=== PATIENT | male | born 1980 | race Caucasian/White ===

== ENCOUNTER → 2017-01-30 | Outpatient (CLI) | payer BC, SELFPAY ==
[2017-01-30 11:03] LABS: HEMOGLOBIN 17.8 gm/dl (14.0-17.5); RED BLOOD COUNT 5.65 M/UL (4.20-5.50); WHITE BLOOD COUNT 6.4 K/UL (4.5-11.0)
== END ==
LOC: LAB 10:20
PROVIDERS: Nurse Practitioner Family
DX: A09 Infectious gastroenteritis and colitis, unspecified (principal); R11.2 Nausea with vomiting, unspecified
CPT/HCPCS: 36415; 80048; 80076; 82150; 83690; 85025

== ENCOUNTER → 2017-02-02 | Outpatient (CLI) | payer BC, SELFPAY ==
[2017-02-02 10:04] LABS: HEMOGLOBIN 17.8 gm/dl (14.0-17.5); RED BLOOD COUNT 5.66 M/UL (4.20-5.50); WHITE BLOOD COUNT 5.1 K/UL (4.5-11.0)
== END ==
LOC: LAB 09:36
PROVIDERS: Nurse Practitioner Family
DX: N28.9 Disorder of kidney and ureter, unspecified (principal); E87.6 Hypokalemia
CPT/HCPCS: 36415; 80053; 85025

== ENCOUNTER → 2017-02-11 | Outpatient (CLI) | payer BC, SELFPAY ==
[2017-02-11 08:10] LABS: BUN/CREATININE RATIO 17 (0-10)
== END ==
LOC: LAB 07:12
PROVIDERS: Nurse Practitioner Family
DX: E87.6 Hypokalemia (principal)
CPT/HCPCS: 36415; 80048

== ENCOUNTER → 2017-02-24 | Outpatient (CLI) | payer BC, SELFPAY ==
[2017-02-24 09:26] LABS: BUN/CREATININE RATIO 12 (0-10)
== END ==
LOC: LAB 08:38
PROVIDERS: Nurse Practitioner Family
DX: E78.6 Lipoprotein deficiency (principal)
CPT/HCPCS: 36415; 80048

== ENCOUNTER → 2017-03-05 | Outpatient (CLI) | payer BC, SELFPAY ==
[2017-03-05 19:27] LABS: BUN/CREATININE RATIO 15 (0-10)
== END ==
LOC: LAB 17:52
PROVIDERS: Nurse Practitioner Family
DX: E87.6 Hypokalemia (principal)
CPT/HCPCS: 36415; 80048

== ENCOUNTER → 2017-04-29 | Outpatient (CLI) | payer BC, SELFPAY ==
[2017-04-29 18:15] LABS: HEMOGLOBIN 16.7 gm/dl (14.0-17.5); RED BLOOD COUNT 5.43 M/UL (4.20-5.50); WHITE BLOOD COUNT 6.6 K/UL (4.5-11.0)
[2017-04-29 18:41] LABS: BUN/CREATININE RATIO 13 (0-10)
== END ==
LOC: LAB 17:39
PROVIDERS: Family Medicine
DX: D68.51 Activated protein C resistance (principal); N28.9 Disorder of kidney and ureter, unspecified; E55.9 Vitamin D deficiency, unspecified; E87.6 Hypokalemia; Z87.442 Personal history of urinary calculi
CPT/HCPCS: 36415; 80048; 80061; 80076; 84443; 85025

== ENCOUNTER → 2020-11-12 | Outpatient (CLI) | payer OTHER ==
[~2020-11-12] MED LIST: Bromphed DM PO; DOCUSATE SODIU250 MG PO; EFFER-K 20 MEQ20 MEQ PO; ELIQUIS5 MG PO; FLOMAX 0.4 MG0.4 MG PO; FLONASE 0.05% N16 GM; FOLIC ACID 1 MG1 MG PO; HYGROTON TAB 2525 MG PO; LOVENOX SY40 MG/0.4 SQ; PERCOCET 5/325 T1 EA PO; PERCOCET 7.5-31 EACH PO; RELPAX20 MG PO; TORADOL 10 MG T10 MG PO; XYZAL5 MG PO; ZOFRAN4 MG PO
[2020-11-12 07:27] LABS: HEMOGLOBIN 17.5 gm/dl (14.0-17.5); RED BLOOD COUNT 5.84 M/UL (4.20-5.50); WHITE BLOOD COUNT 7.4 K/UL (4.5-11.0)
[2020-11-12 07:39] LABS: BUN/CREATININE RATIO 17 (0-10)
[2020-11-13 10:14] LABS: CREATININE, URINE 223.8 mg/dL (Not Estab.)
== END ==
LOC: LAB 06:45
PROVIDERS: Family Medicine
DX: Z00.00 Encounter for general adult medical examination without abnormal findings (principal); E11.9 Type 2 diabetes mellitus without complications; E55.9 Vitamin D deficiency, unspecified
CPT/HCPCS: 36415; 80048; 80061; 80076; 82043; 82570; 82607; 82652; 83036; 84443; 85025

== ENCOUNTER → 2021-01-04 | Outpatient (CLI) | payer OTHER | LOC: EMI 13:23 | DX: M25.561 Pain in right knee (principal); S83.231A Complex tear of medial meniscus, current injury, right knee, initial encounter | CPT/HCPCS: 73721 ==

== ENCOUNTER → 2021-05-16 | Outpatient (CLI) | payer OTHER | LOC: KOH-I 13:30 | DX: R91.1 Solitary pulmonary nodule (principal) | CPT/HCPCS: 71250 ==

== ENCOUNTER → 2021-05-17 | Outpatient (CLI) | payer OTHER | LOC: LAB 06:56 | PROVIDERS: Internal Medicine | DX: E87.6 Hypokalemia (principal) | CPT/HCPCS: 36415; 80069 ==

== ENCOUNTER → 2021-05-28 | Outpatient (CLI) | payer OTHER ==
[2021-05-28 08:19] LABS: HEMOGLOBIN 18.5 gm/dl (14.0-17.5); RED BLOOD COUNT 5.84 M/UL (4.20-5.50); WHITE BLOOD COUNT 5.5 K/UL (4.5-11.0)
[2021-05-28 09:47] LABS: BUN/CREATININE RATIO 13 (0-10)
[2021-05-29 07:13] LABS: VITAMIN D, 25-HYDROXY 38.2 ng/mL (30.0-100.0)
[2021-05-29 09:15] LABS: CREATININE, URINE 210.6 mg/dL (Not Estab.)
== END ==
LOC: LAB 07:14
PROVIDERS: Family Medicine
DX: Z00.00 Encounter for general adult medical examination without abnormal findings (principal); E11.9 Type 2 diabetes mellitus without complications; E55.9 Vitamin D deficiency, unspecified
CPT/HCPCS: 36415; 80048; 80061; 80076; 82043; 82570; 82607; 82652; 83036; 84443; 85025

== ENCOUNTER → 2021-10-28 | Outpatient (CLI) | payer OTHER ==
[2021-10-28 08:18] LABS: BUN/CREATININE RATIO 13 (0-10)
[2021-10-28 08:26] LABS: HEMOGLOBIN 17.4 gm/dl (14.0-17.5); RED BLOOD COUNT 5.74 M/UL (4.20-5.50)
== END ==
LOC: LAB 06:54
PROVIDERS: Internal Medicine
DX: N20.0 Calculus of kidney (principal); E87.6 Hypokalemia
CPT/HCPCS: 36415; 80069; 82570; 83970; 84156; 85027

== ENCOUNTER → 2021-11-14 | Outpatient (CLI) | payer BC ==
[2021-11-14 07:30] LABS: HEMOGLOBIN 18.2 gm/dl (14.0-17.5); RED BLOOD COUNT 5.71 M/UL (4.20-5.50); WHITE BLOOD COUNT 7.7 K/UL (4.5-11.0)
[2021-11-15 07:10] LABS: ESTIM. AVG GLU (EAG) 134 mg/dL (.); HEMOGLOBIN A1C 6.3 % (4.8-5.6)
[2021-11-15 08:13] LABS: A/G RATIO 1.6 (1.2-2.2); ALKALINE PHOSPHATASE, S 82 IU/L (44-121); ALT (SGPT) 25 IU/L (0-44); AST (SGOT) 18 IU/L (0-40); BILIRUBIN, TOTAL 0.7 mg/dL (0.0-1.2); BUN 20 mg/dL (6-24); BUN/CREATININE RATIO 15 (9-20); CALCIUM, SERUM 9.6 mg/dL (8.7-10.2); CARBON DIOXIDE, TOTAL 23 mmol/L (20-29); CHLORIDE, SERUM 102 mmol/L (96-106); CHOLESTEROL, TOTAL 139 mg/dL (100-199); CREATININE, SERUM 1.35 mg/dL (0.76-1.27); CREATININE, URINE 164.2 mg/dL (Not Estab.); EGFR IF AFRICN AM 75 (>59); EGFR IF NONAFRICN AM 65 (>59); GLOBULIN, TOTAL 2.7 g/dL (1.5-4.5); GLUCOSE, SERUM 126 mg/dL (65-99); HDL CHOLESTEROL 45 mg/dL (>39); LDL CHOLESTEROL CALC 78 mg/dL (0-99); LDL/HDL RATIO 1.7 ratio (0.0-3.6); POTASSIUM, SERUM 3.8 mmol/L (3.5-5.2); PROTEIN, TOTAL, SERUM 6.9 g/dL (6.0-8.5); SODIUM, SERUM 140 mmol/L (134-144); T. CHOL/HDL RATIO 3.1 ratio (0.0-5.0); TRIGLYCERIDES 82 mg/dL (0-149); TRIIODOTHYRONINE (T3) 123 ng/dL (71-180); VITAMIN D, 25-HYDROXY 42.9 ng/mL (30.0-100.0)
== END ==
LOC: LAB 07:05
PROVIDERS: Family Medicine
DX: Z00.00 Encounter for general adult medical examination without abnormal findings (principal); E11.9 Type 2 diabetes mellitus without complications; E55.9 Vitamin D deficiency, unspecified; D68.51 Activated protein C resistance; N28.9 Disorder of kidney and ureter, unspecified
CPT/HCPCS: 36415; 80053; 80061; 82043; 82570; 82607; 82652; 83036; 84439; 84443; 84480; 84481; 85025

== ENCOUNTER → 2021-12-04 | Outpatient (CLI) | payer BC ==
[2021-12-04 10:22] LABS: BORDETELLA PARAPERTUSSIS Not Detected (Not Detectd); BORDETELLA PERTUSSIS Not Detected (Not Detectd); CHLAMYDIA PNEUMONIAE Not Detected (Not Detectd); CORONAVIRUS HKU1 Not Detected (Not Detectd); CORONAVIRUS NL63 Not Detected (Not Detectd); CORONAVIRUS OC43 Not Detected (Not Detectd); CORONOAVIRUS 229E Not Detected (Not Detectd); HUMAN METAPNEUMOVIRUS Not Detected (Not Detectd); HUMAN RHINOVIRUS/ENTEROVIRUS Not Detected (Not Detectd); INFLUENZA A Not Detected (Not Detectd); INFLUENZA B Not Detected (Not Detectd); MYCOPLASMA PNEUMONIAE Not Detected (Not Detectd); PARAINFLUENZA VIRUS 1 Not Detected (Not Detectd); PARAINFLUENZA VIRUS 2 Not Detected (Not Detectd); PARAINFLUENZA VIRUS 3 Not Detected (Not Detectd); PARAINFLUENZA VIRUS 4 Not Detected (Not Detectd); RESPIRATORY SYNCYTIAL VIRUS Not Detected (Not Detectd)
[2021-12-04 11:45] LABS: SARS-CoV-2 NOT DETECTED (Not Detectd)
== END ==
LOC: RT 10:08
PROVIDERS: Nurse Practitioner Family
DX: J06.9 Acute upper respiratory infection, unspecified (principal); Z20.822 Contact with and (suspected) exposure to COVID-19
CPT/HCPCS: 87633

== ENCOUNTER → 2022-03-10 | Outpatient (CLI) | payer BC ==
[2022-03-10 07:19] LABS: HEMOGLOBIN 17.3 gm/dl (14.0-17.5); RED BLOOD COUNT 5.64 M/UL (4.20-5.50); WHITE BLOOD COUNT 5.9 K/UL (4.5-11.0)
== END ==
LOC: LAB 06:50
PROVIDERS: Internal Medicine
DX: E87.6 Hypokalemia (principal); N20.0 Calculus of kidney
CPT/HCPCS: 36415; 80069; 82570; 83970; 84156; 85027

== ENCOUNTER → 2022-06-04 | Outpatient (CLI) | payer BC ==
[2022-06-04 08:03] LABS: HEMOGLOBIN 17.4 gm/dl (14.0-17.5); RED BLOOD COUNT 5.46 M/UL (4.20-5.50); WHITE BLOOD COUNT 6.6 K/UL (4.5-11.0)
[2022-06-04 13:48] LABS: BUN/CREATININE RATIO 15 (0-10)
[2022-06-05 07:11] LABS: VITAMIN D, 25-HYDROXY 36.4 ng/mL (30.0-100.0)
== END ==
LOC: LAB 06:55
PROVIDERS: Family Medicine
DX: Z00.00 Encounter for general adult medical examination without abnormal findings (principal); E55.9 Vitamin D deficiency, unspecified; D68.51 Activated protein C resistance; E66.9 Obesity, unspecified; E11.9 Type 2 diabetes mellitus without complications; N28.9 Disorder of kidney and ureter, unspecified; Z86.718 Personal history of other venous thrombosis and embolism
CPT/HCPCS: 36415; 80053; 80061; 82607; 82652; 83036; 84443; 85025

== ENCOUNTER 2022-06-07 11:25 | Emergency (ER) | payer BC ==
[2022-06-07 13:20] LABS: HEMOGLOBIN 17.4 gm/dl (14.0-17.5); RED BLOOD COUNT 5.48 M/UL (4.20-5.50); WHITE BLOOD COUNT 6.7 K/UL (4.5-11.0)
== END 2022-06-07 17:32 | disposition home or self-care (01) ==
LOC: ER1 11:25
PROVIDERS: Emergency Medicine
DX: U07.1 COVID-19 (principal); Z23 Encounter for immunization; E86.0 Dehydration; E87.6 Hypokalemia; E11.9 Type 2 diabetes mellitus without complications
CPT/HCPCS: 71045; 80053; 85025; 99283; M0222; U0002

== ENCOUNTER 2022-07-11 16:07 | Emergency (ER) | payer BC ==
[2022-07-11 17:48] LABS: HEMOGLOBIN 15.9 gm/dl (14.0-17.5); RED BLOOD COUNT 5.01 M/UL (4.20-5.50); WHITE BLOOD COUNT 9.8 K/UL (4.5-11.0)
[2022-07-11] MEDS ORDERED: FLOMAX 0.4 MG0.4 MG PO (20:04)
[2022-07-11] MEDS ORDERED: OMNICEF 300 MG300 MG PO (20:05)
== END 2022-07-11 20:30 | disposition left against medical advice (07) ==
LOC: ER1 16:07
PROVIDERS: Physician Assistant
DX: N30.01 Acute cystitis with hematuria (principal); N13.2 Hydronephrosis with renal and ureteral calculous obstruction; E11.9 Type 2 diabetes mellitus without complications; E78.5 Hyperlipidemia, unspecified; I10 Essential (primary) hypertension; Z79.84 Long term (current) use of oral hypoglycemic drugs; Z88.5 Allergy status to narcotic agent
CPT/HCPCS: 80053; 81001; 85025; 87086; 96374; 96375; 99283; J0696; J1885; J2405

== ENCOUNTER → 2022-07-16 | Outpatient (CLI) | payer BC ==
[~2022-07-16] MED LIST changes: +OMNICEF 300 MG300 MG PO
== END ==
LOC: US 08:34
DX: N13.2 Hydronephrosis with renal and ureteral calculous obstruction (principal); E87.6 Hypokalemia; N28.89 Other specified disorders of kidney and ureter